=== PATIENT | male | born 1965 | race Caucasian/White ===

== ENCOUNTER → 2016-10-01 | Outpatient (CLI) | payer OTHER ==
[2015-09-12 22:20] VITALS: BP 126/78
--- NOTE | 2016-10-01 16:05 | CT ---
Chest CT without contrast Indication: Sternal pain with concern for sternal separation. History of remote CABG in 2010 Technique: Helical CT images of the chest were obtained without contrast. Reformatted images in the coronal and sagittal planes were also generated for review. Comparison: Sternal radiograph November 23, 2015, chest radiograph September 12, 2015 Findings: Prior median sternotomy changes are noted. The majority of the sternotomy wires are fractured/fragme nted, grossly unchanged when compared to the chest radiograph of September 12, 2015, with approximately 6 mm distraction of left and right sternum. The medial margins of the left and right sternum demonstr ate well corticated margins. The sternomanubrial joint appears maintained. No acute fracture or subl uxation of the sternum is identified. Mild degenerative changes are noted throughout the thoracic sp ine. No aggressive osseous lesions are seen. The heart is mildly enlarged with advanced 3 vessel coronary atherosclerotic disease and prior CABG changes noted. No significant pericardial effusion or retrosternal fluid collection is identified. T he thoracic aorta and great vessels appear normal for noncontrast technique. Central airways are pat ent. There is no incidental adenopathy. The lungs are clear without focal consolidation or significa nt effusion. Noncontrast images of the upper abdomen demonstrates no acute abnormality. Impression: 1. Prior median sternotomy with fragmentation/fracture of the majority of the sternotomy wires, as d etailed above. There is mild associated distraction of the left and right sternum (approximately 6 m m), which demonstrate well corticated margins, suggesting chronicity. 2. Otherwise, no acute cardiopulmonary abnormality identified. Additional incidental findings as abo ve. Reported By:
== END ==
LOC: RAD 13:59
PROVIDERS: ATTEND Internal Medicine Cardiovascular Disease
DX: R07.89 Other chest pain (principal); Z98.890 Other specified postprocedural states
CPT/HCPCS: 71250

== ENCOUNTER 2017-04-06 17:43 | Emergency (ER) | payer OTHER ==
[2017-04-06 17:56] VITALS: BP 134/72; BMI 36.4
--- NOTE | 2017-04-06 18:42 | DR.GENAD ---
HPI - PCP Primary Care Physician: JEROD ValentineP - HPI Comment HPI Comment: HISTORY CHRONIC BACK PAIN. ONE WEEK AGO, POPPING SOUND HEARD WHENPATIENT TWISTED BACK 6 DAYS AGO. INCREASING PAIN SINCE. TAKES PAIN MED FROM PAIN CLINIC. - Complaint/Symptoms Chief Complaint Doctors Comments: LOWER BACK PAIN. Chief Complaint:: Pt has two fractured vertebra in lower back. Last wednesday pt was doing laundry and twisted and heard a crack and since then pt hasn't been able to stand stright and has had tremendous pain in lower back that radiates down both legs Self Treatment fo Chief Complaint: Viocdin - see Dr. Norton in [place] for pain management - Nurses notes reviewed Nurses Notes Review: Yes - Source History Provided: Parent - Mode of Arrival Mode of Arrival: Ambulatory - Timing Onset of Chief Complaint: 03/31/17 Came on: Suddenly - Duration Duration: Constant Duration: Days - Severity Severity: Moderate PMH - PMH Past Medical History: Yes Past Medical History: Arthritis, Coronary Artery Disease, Depression, Diabetes, Dyslipidemia, GERD, Hypertension, [place] Past Surgical History: Yes Surgical History: Angioplasty/Stents, CABG/Valve Surgery, Ortho Surgery, Tonsillectomy Past Surgical History Comment: tear ducts reopened, - Family History History of Family Medical Conditions: Yes Family Medical History: Diabetes Mellitus, Cancer, [place], Coronary Artery Disease, Hypertension - Social History Does patient currently use any type of tobacco product: Yes Have you used tobacco products in the last 12 months: Yes Type of Tobacco Use: Cigarettes Does any household member use tobacco: Yes Alcohol Use: None, Heavy Do you use any recreational Drugs:: No Lives With: Spouse Lives Where: Home - infectious screening In the last 2 months have you had wt loss of >10#?: NO Have you had fever, night sweats or hemotysis?: No Have you traveled outside the country in the last 6 months?: No Isolation: Standard ROS - Review of Systems Constitutional: No Symptoms Reported Eyes: No Symptoms Reported ENTM: No Symptoms Reported Respiratoy: No Symptoms Reported Cardiovascular: No Symptoms Reported Gastrointestinal/Abdominal: No Symptoms Reported Genitourinary: No Symptoms Reported Neurological: No Symptoms Reported Musculoskeletal: Back Pain, Back Integumentary: No Symptoms Reported Endocrine: No Symptoms Reported All Other Systems: Reviewed and Negative PE - Vital Signs Vitals: Temperature 97.1 F Pulse Rate 81 Respiratory Rate 20 Blood Pressure [Right Arm] 126/78 Blood Pressure 134/72 O2 Sat by Pulse Oximetry 96 - General Limitations: No Limitations General Appearance: Alert - Head Head Exam: Normal Inspection - Eyes Eye exam: PERRL, EOMI. negative: Scleral Icterus, Conjunctival Injection - ENT ENT Exam: Normal External Ear Exam External Ear Exam: Normal External Inspection TM/Canal Exam: Bilateral Normal Mouth Exam: Normal Inspection Throat Exam: Normal Inspection - Neck Neck Exam: Trachea Midline - Chest Chest Inspection: Symmetric Chest Wall Rise - Respiratory Respiratory Exam: Normal Lung Sounds Bilat Respiratory Exam: Bilateral Clear to Auscultation - Cardiovascular Cardiovascular Exam: Regular Rate, Normal Rhythm, Normal Heart Sounds - Abdominal Exam Abdominal Exam: Normal Bowel Sounds - Extremities Extremities Exam: Normal Inspection - Back Back Exam: (R) CVA Tenderness, (L) CVA Tenderness, Muscle Spasm, Paraspinal Tenderness, Vertebral Tenderness - Neurologic Neurological Exam: Alert, Oriented X3, Normal Gait, Reflexes Normal. negative: Motor Sensory Deficit - Psychiatric Psychiatric Exam: Normal Affect, Normal Mood - Skin Skin Exam: Normal Color MDM - Additional Information Additional Information Obtained From: Family - Differential Diagnosis Differential Diagnosis: LOWER BACK , MUSCLE STRAIN, FRACTURE, SPRAIN. Course - Treatment Treatment: SEE ORDERS. IM TORADOL AND NORFLEX IN ED. - Education/Counseling Education/Counseling: Patient, Education Educated On: Treatment, Diagnosis, Needs for Follow Up ROR - XRAY XRAY Interpreted by: Radiologist XRAY Findings: REPORT DISCUSS WITH PATIENT. - Diagnosis Discharge Problem: Strain of muscle, fascia and tendon of lower back, initial encounter - Discharge Plan Disposition: 01 HOME, SELF-CARE Condition: Stable Prescriptions: Cyclobenzaprine HCl [FLEXERIL 10 MG *] 10 mg PO TID #20 tab Ketorolac Tromethamine [Toradol Tab] 10 mg PO Q8H PRN #20 tab PRN Reason: Pain - Follow ups/Referrals Follow ups/Referrals: NFD,None [Primary Care Provider] - 3 days - Instructions Instructions: Musculoskeletal Pain, Back Pain, Adult, Dtpz-[id number] Additional Instructions: RETURN TO ED IF WORSE.
[2017-04-06] MEDS ORDERED: NORFLEX INJ IM ONE (18:46)
[2017-04-06] MEDS ORDERED: TORADOL 60 MG VIAL IM ONE (18:46)
[2017-04-06] MEDS ORDERED: TORADOL 60 MG VIAL ONE (19:06)
[2017-04-06] MEDS ORDERED: NORFLEX INJ ONE (19:06)
--- NOTE | 2017-04-06 19:14 | CT ---
HISTORY: Pain, history of fractured vertebra Study: CT lumbar spine without contrast Comparison: None Technique: Multiple axial images of the lumbar spine without the administration of IV contrast. Sag ittal and coronal reformats were performed and reviewed. Dose reduction techniques including Automat ed Exposure Control (AEC) and adjustment of mA and kV were utilized. Findings: Multilevel spondylosis and facet arthropathy is present. There are bilateral pars interarticularis de fects at L5 resulting in 1.3 cm of spondylolisthesis. There are calcified broad-based disc bulges at L3-L4 and L4-5 resulting in moderate spinal stenosis at L3-L4. There is broad-based disc bulge at L2- L3. No acute fracture or dislocation is identified. Vertebral body heights are preserved. The surroun ding paraspinal soft tissues are intact. IMPRESSION: 1.No osseous abnormality of the lumbar spine. 2. Bilateral pars interarticularis defects at L5 resulting in 1.3 cm of spondylolisthesis. 3. Moderate spinal stenosis at L3-L4. Reported By:
== END 2017-04-06 20:13 | disposition home or self-care (01) ==
LOC: ER 18:03
DX: S39.012A Strain of muscle, fascia and tendon of lower back, initial encounter (principal); M43.16 Spondylolisthesis, lumbar region; M48.061 Spinal stenosis, lumbar region without neurogenic claudication
CPT/HCPCS: 72131; 96372; 99282; 99283; J1885; J2360

== ENCOUNTER → 2017-05-24 | Outpatient (CLI) | payer OTHER ==
[2017-05-24 13:43] LABS: BASOPHILS # (AUTO) 0.1 X10^3/uL (0.0-0.1); BASOPHILS % (AUTO) 0.8 % (0.2-1.0); EOSINOPHILS # (AUTO) 0.3 x10^3/uL (0.0-0.2); EOSINOPHILS % (AUTO) 2.3 % (0.9-2.9); HEMOGLOBIN 14.7 g/dL (13.5-18.0); LYMPHOCYTES # (AUTO) 3.6 X10^3/uL (1.3-2.9); LYMPHOCYTES % (AUTO) 30.9 % (21.0-51.0); MEAN CORPUSCULAR HEMOGLOBIN 27.8 pg (27.0-34.0); MEAN CORPUSCULAR HGB CONC 33.4 g/dL (33.0-35.0); MEAN CORPUSCULAR VOLUME 83.3 fL (80.0-100.0); MEAN PLATELET VOLUME 9.3 fL (7.4-11.0); MONOCYTES # (AUTO) 0.9 x10^3/uL (0.3-0.8); MONOCYTES % (AUTO) 7.4 % (0.0-13.0); NEUTROPHILS # (AUTO) 6.8 x10^3/uL (2.2-4.8); NEUTROPHILS % (AUTO) 58.6 % (42.0-75.0); PLATELET COUNT 239 X10^3/uL (150.0-450.0); RED BLOOD COUNT 5.28 X10^6/uL (4.7-6.0); RED CELL DISTRIBUTION WIDTH 14.4 % (11.6-16.5); WHITE BLOOD COUNT 11.6 X10^3/uL (3.6-10.0)
--- NOTE | 2017-05-24 15:52 | RAD ---
HISTORY: COPD Study: Two views of chest Comparison: November 23, 2015 Findings: The trachea is midline. The cardiac silhouette is mildly enlarged. No evidence of focal consolidati on or effusion is appreciated. Mild anterior wedging of a few mid to lower thoracic vertebral bodies are again noted. Postoperative changes of midline sternotomy are noted. IMPRESSION: 1. Mild cardiomegaly. Reported By:
== END ==
LOC: LAB 13:15
PROVIDERS: ATTEND Nurse Practitioner Family
DX: J44.0 Chronic obstructive pulmonary disease with (acute) lower respiratory infection (principal); J20.9 Acute bronchitis, unspecified
CPT/HCPCS: 36415; 71046; 85025

== ENCOUNTER 2017-06-25 06:03 | Emergency (ER) | payer OTHER ==
--- NOTE | 2017-06-25 06:21 | DR.CP ---
HPI - Time Seen Time seen: 06:17 - PCP Primary Care Physician: HANS PLUNKETT - Complaint Chief Complaint:: UPPER CHEST PAIN SINCE LAST NIGHT AROUND 2300. SOME LIGHT HEADEDNESS. EXTENSIVE CARDIAC HISTORY. - Reviewed Nurses Notes Review: Yes - Source History Provided: Patient, EMS - Mode of Arrival Mode of Arrival: EMS - Timing Onset of Chief Complaint: 06/24/17 Came on: Gradually - Duration Duration: Constant How lon Duration: Hours - Location Location of Chest Pain: Chest Chest Pain Radiation Location: None - Context Onset: At rest Cardiac Risk Factors: HTN PE Risk Factors: None History of: MA, Angioplasty Prehospital Care: Oxygen - Quality Quality: Burning - Severity Severity: Mild - Modifying Factors Worsens: Nothing Impoves: NTG - Associated Signs and Symptoms Associated Signs and Symptoms: None PMH - PMH Past Medical History: Yes Past Medical History: Arthritis, Coronary Artery Disease, Depression, Diabetes, Dyslipidemia, GERD, Hypertension, [place] Past Surgical History: Yes Surgical History: Angioplasty/Stents, CABG/Valve Surgery, Ortho Surgery, Tonsillectomy - Family History History of Family Medical Conditions: Yes Family Medical History: Diabetes Mellitus, Cancer, [place], Coronary Artery Disease, Hypertension - Social History Type of Tobacco Use: None Alcohol Use: None Do you use any recreational Drugs:: No Lives Where: Home - infectious screening Have you traveled outside the country in the last 6 months?: No Isolation: Standard ROS - Review of Systems Constitutional: No Symptoms Reported Eyes: No Symptoms Reported ENTM: No Symptoms Reported Respiratoy: Short of Breath Cardiovascular: Chest Pain Gastrointestinal/Abdominal: No Symptoms Reported Genitourinary: No Symptoms Reported Neurological: No Symptoms Reported Musculoskeletal: No Symptoms Reported Integumentary: No Symptoms Reported Hematologic/Lymphatic: No Symptoms Reported Endocrine: No Symptoms Reported Psychiatric: No Symptoms Reported All Other Systems: Reviewed and Negative PE - Vitals Vitals: Temperature 98.1 F Pulse Rate 90 Respiratory Rate 18 Blood Pressure [Right Arm] 126/78 Blood Pressure 144/87 O2 Sat by Pulse Oximetry 96 - General Limitations: No Limitations General Appearance: Alert, In No Apparent Distress - Head Head Exam: Normal Inspection - Eyes Eye exam: Normal Appearance, EOMI. negative: Scleral Icterus, Conjunctival Injection - ENT ENT Exam: Normal Exam, Normal Oropharynx - Chest Chest Inspection: Normal Inspection - Respiratory Respiratory Exam: Normal Lung Sounds Bilat. negative: Accessory Muscle Use, Respiratory Distress Respiratory Exam: Bilateral Clear to Auscultation - Cardiovascular Cardiovascular Exam: Regular Rate Pulse: Normal Edema: Normal - Abdominal Exam Abdominal Exam: Normal Inspection, Normal Bowel Sounds, Soft - Extremities Extremities Exam: Normal Inspection - Back Back Exam: Normal Inspection - Neurologic Neurological Exam: Alert, Oriented X3, CN II-XII Intact - Psychiatric Psychiatric Exam: Normal Affect - Skin Skin Exam: Warm, Intact, Normal Color Course - Consultation Called: 06:59 Call Returned: 07:00 Consultation Comments: case discussed with DR. [facility], accepted patient - Diagnosis Discharge Problem: Chest pain due to CAD - Discharge Plan Condition: Stable - Follow ups/Referrals Follow ups/Referrals: HANS PLUNKETT [Primary Care Provider] - 3 days - Instructions
[2017-06-25 06:26] VITALS: BMI 36.7
[2017-06-25] MEDS ORDERED: NITROSTAT SL PRN (06:34)
--- NOTE | 2017-06-25 06:48 | RAD ---
Examination: AP chest History: Chest pain Comparison reference 05/24/2017 Findings: Stable heart size with postsurgical findings. Essentially clear lungs and pleural spaces. T here is no evidence for pneumonia, pleural fluid or pulmonary edema. Impression: No significant change or acute findings. Reported By:
[2017-06-25 07:09] LABS: BASOPHILS # (AUTO) 0.1 X10^3/uL (0.0-0.1); BASOPHILS % (AUTO) 0.7 % (0.2-1.0); EOSINOPHILS # (AUTO) 0.1 x10^3/uL (0.0-0.2); EOSINOPHILS % (AUTO) 0.7 % (0.9-2.9); HEMATOCRIT 40.6 % (42.0-54.0); HEMOGLOBIN 13.8 g/dL (13.5-18.0); LYMPHOCYTES # (AUTO) 2.2 X10^3/uL (1.3-2.9); LYMPHOCYTES % (AUTO) 18.3 % (21.0-51.0); MEAN CORPUSCULAR HEMOGLOBIN 27.7 pg (27.0-34.0); MEAN CORPUSCULAR VOLUME 81.7 fL (80.0-100.0); MEAN PLATELET VOLUME 9.3 fL (7.4-11.0); MONOCYTES % (AUTO) 7.9 % (0.0-13.0); NEUTROPHILS # (AUTO) 8.9 x10^3/uL (2.2-4.8); NEUTROPHILS % (AUTO) 72.4 % (42.0-75.0); PLATELET COUNT 206 X10^3/uL (150.0-450.0); RED BLOOD COUNT 4.97 X10^6/uL (4.7-6.0); RED CELL DISTRIBUTION WIDTH 14.7 % (11.6-16.5); WHITE BLOOD COUNT 12.2 X10^3/uL (3.6-10.0)
[2017-06-25 07:49] LABS: ALANINE AMINOTRANSFERASE 21 Units/L (12-78); ALBUMIN 3.7 g/dL (3.4-5.0); ALKALINE PHOSPHATASE 115 Units/L (46-116); ASPARTATE AMINO TRANSFERASE 57 Units/L (15-37); BLOOD UREA NITROGEN 9 mg/dL (7-18); CALCIUM 9.1 mg/dL (8.5-10.1); CARBON DIOXIDE 25.4 mmol/L (21-32); CHLORIDE 99 mmol/L (98-107); CKMB % 5.7 % (<4); COR NA(FOR HYPERGLY) 142 mmol/L (136-145); CREATINE KINASE 503 Units/L (39-308); CREATINE KINASE MB 28.6 ng/mL (0-4.0); CREATININE 0.83 mg/dL (0.70-1.30); MAGNESIUM 1.8 mg/dL (1.7-2.9); SODIUM 135 mmol/L (136-145); TOTAL PROTEIN 7.8 g/dL (6.4-8.2); eGFR BLACK RACES > 60 (>60); eGFR NON BLACK RACES > 60 (>60)
[2017-06-25 07:50] LABS: TROPONIN I 7.17 ng/mL (0-1.5)
[2017-06-25] MEDS ORDERED: NITROGLYCERIN IV PREMIX 50 MG 50 MG/250 ML BAG IV PRN (08:49)
[2017-06-25] MEDS ORDERED: NITROGLYCERIN IV PREMIX 50 MG 50 MG/250 ML BAG IV ONE (08:50)
[2017-06-25] MEDS ORDERED: ZOFRAN INJ 4 MG VIAL ONE (08:59)
[2017-06-25] MEDS ORDERED: ZOFRAN INJ 4 MG VIAL IVP ONE (08:59)
[2017-06-25 09:00] VITALS: BP 169/82
== END 2017-06-25 09:03 | disposition short-term general hospital (02) ==
LOC: ER 06:03
DX: R07.89 Other chest pain (principal); Z86.79 Personal history of other diseases of the circulatory system; R94.31 Abnormal electrocardiogram [ECG] [EKG]
CPT/HCPCS: 36415; 71045; 80053; 82550; 82553; 83735; 84484; 85025; 85610; 85730; 93005; 93010; 96365; 96374; 96375; 99285; A4222; J2405

== ENCOUNTER 2020-01-28 10:00 | Inpatient (IN) ==
--- NOTE | 2020-01-28 10:14 | DR.SOBA ---
HPI Time Seen Time Seen by Provider: 01/28/20 10:14 HPI Comment HPI Comment: PATIENT IS 54YR OLD MALE IN ER WITH INCREASING SOB TIMES 3 DAYS. PATIENT HAVE HISTORY OF COPB ON HOME 02 4L/M. HE ALSO HAVEE CAD, HTN, PREVIOUS AR AND CABG. HE ALSO HAVE INDWELLING PACEMAKER. PATIENT IS WEAK, HAVE BEING SWEA TING A LOT, HAVING PLEUTIC CHEST PAIN AND TIGHTNESS AND HAVE INCREASING EDEMA OF LOWER EXTREMITIES. NO FEVER. SYMTOMS WORSE TODAY. HE IS COUGHING THICK YELLOW SPUTUM. Complaints Chief Complaint Doctors Comments: INCREASING SOB FOR 3 DAYS. COVID-19 Coronavirus risk:travel/contact w/high risk person: No Has patient experienced Coronavirus symptoms: Yes Coronavirus symptoms experienced: Coughing and Shortness of Breath Reviewed Nurses Notes Reviewed: Yes Source History Provided: Patient Mode of Arrival Mode of Arrival: Ambulatory Duration Duration: Days Context Onset:: At Rest PE Risk Factors:: None History of:: COPD and CHF Currently on:: Inhaled Bronchodilators Prehospital Care:: O2, Injected B2 and Furosemide Modifying Factors Worsens:: Exertion and Lying Flat Improves:: Inhaler, Rest and Sitting Up Associated Signs and Symptoms Associated Signs and Symptoms: Wheeze, Cough, Chest Pain and Leg Swelling If Chest Pain Quality: Pleuritic Location: Substernal If Cough Cough: Productive and Yellow PMH PMH Past Medical History: Arthritis, Coronary Artery Disease, Depression, Diabetes, Dyslipidemia, GERD, Hypertension and AR Past Surgical History: Yes Surgical History: Angioplasty/Stents, CABG/Valve Surgery, Ortho Surgery and Tons illectomy Family History Family Medical History: Diabetes Mellitus, Cancer, [place], Coronary Artery Disease and Hypertension Social History Do you use any recreational Drugs:: No ROS Review of Systems Constitutional: See HPI, Weakness and Fatigue; negative Fever Eyes: No Symptoms Reported and See HPI; negative Blurred Vision and Diplopia ENTM: See HPI and Nose Congestion; negative Ear Pain, Nose Discharge and Throat Pain Respiratoy: See HPI, Productive Cough, Short of Breath and Wheezing Cardiovascular: See HPI, Chest Pain (TIGHTNESS.) and Edema Gastrointestinal/Abdominal: No Symptoms Reported and See HPI; negative Abdominal Pain, Diarrhea and Vomiting Genitourinary: See HPI; negative Dysuria, Frequency and Hematuria Neurological: See HPI, Headache and Weakness; negative Dizziness Musculoskeletal: See HPI, Back Pain and Muscle Pain Integumentary: No Symptoms Reported and See HPI; negative Change in Color, Rash and Juandice Hematologic/Lymphatic: See HPI, Easy Bleeding and Easy Bruising; negative Swollen Glands Endocrine: No Symptoms Reported and See HPI; negative Increased Thirst and Increased Urine Psychiatric: No Symptoms Reported and See HPI All Other Systems: Reviewed and Negative PE Vital Signs Vitals: Temperature 98.1 F Pulse Rate 60 Respiratory Rate 20 Blood Pressure [Right Arm] 115/66 Blood Pressure 121/56 O2 Sat by Pulse Oximetry 100 General Limitations: No Limitations General Appearance: Alert and In No Apparent Distress Head Head Exam: Normal Inspection Eyes Eye exam: Normal Appearance and PERRL; negative Scleral Icterus and Conjunctival Injection ENT ENT Exam: Normal External Ear Exam; negative Normal Oropharynx and TM's Normal Bilaterally Neck Neck Exam: Normal Inspection and Trachea Midline; negative Tenderness and Lymphadenopathy Chest Chest Inspection: Normal Inspection and Symmetric Chest Wall Rise; negative Tenderness Respiratory Respiratory Exam: Accessory Muscle Use and Respiratory Distress; negative Chest Wall Tenderness Respiratory Exam: Bilateral: Wheezing and Bilateral: Rhonchi and Lower: Wheezing and Lower: Rhonchi Cardiovascular Cardiovascular Exam: Regular Rate, Normal Rhythm and Normal Heart Sounds; negative Systolic Murmur and Diastolic Murmur Abdominal Exam Abdominal Exam: Normal Inspection, Normal Bowel Sounds and Soft; negative Tenderness Extremities Extremities Exam: Normal Capillary Refill and Edema; negative Tenderness and Calf Tenderness Back Back Exam: Normal Inspection; negative (R) CVA Tenderness and (L) CVA Tenderness Neurologic Neurological Exam: Alert and Oriented X3; negative Motor Sensory Deficit Psychiatric Psychiatric Exam: Normal Affect and Normal Mood Skin Skin Exam: Warm, Dry, Intact and Normal Color MDM Additional Information Obtained Additional Information Obtained From: Old Records Differential Diagnosis Differential Diagnosis: Bronchitis, CHF, COPD, Dysrhythmia, Hyponatremia, Mycardial Infarction, Pneumonia, Pneumothorax and Respiratory Insufficiency COURSE Treatment Treatment: SEE ORDERS. ALBUTEROL 0.5MG/3MG NEB, LASIX 40MD IV, DECADRON 4MG IV, ROCEPHIN IGM IVPB IN ER. Reevaluation 1st: Improved (SOB IMPROVING.) Consultation Consultation Comments: DISCUSSED PATIENT WITH DR. ROBERTS AND HE WILL ACCEPTED PATIENT FOR ADMISSION. Education/Counseling Education/Counseling: Patient Educated On: Diagnosis ROR Labs Reviewed Laboratory Results Reviewed?: Yes Result Diagrams: 01/30/20 06:05 01/30/20 06:05 Laboratory: 01/28/20 15:05 Blood Blood Culture - Final 01/28/20 15:00 Blood Blood Culture - Final 01/28/20 11:19 Sputum - Expectorated Sputum Sputum Culture - Final 01/28/20 11:19 Sputum - Expectorated Sputum - Final WBC 7.9 X10^3/uL (3.6-10.0) 01/28/20 10:38 RBC 3.73 X10^6/uL (4.7-6.0) L 01/28/20 10:38 Hgb 10.1 g/dL (13.5-18.0) L 01/28/20 10:38 Hct 30.1 % (42.0-54.0) L 01/28/20 10:38 MCV 80.8 fL (80.0-100.0) 01/28/20 10:38 MCH 27.0 pg (27.0-34.0) 01/28/20 10:38 MCHC 33.4 g/dL (33.0-35.0) 01/28/20 10:38 RDW 15.4 % (11.6-16.5) 01/28/20 10:38 Plt Count 185 X10^3/uL (150.0-450.0) 01/28/20 10:38 MPV 8.9 fL (7.4-11.0) 01/28/20 10:38 Neut % (Auto) 77.5 % (42.0-75.0) H 01/28/20 10:38 Lymph % (Auto) 11.3 % (21.0-51.0) L 01/28/20 10:38 [place] % (Auto) 9.8 % (0.0-13.0) 01/28/20 10:38 Eos % (Auto) 1.1 % (0.9-2.9) 01/28/20 10:38 Baso % (Auto) 0.3 % (0.2-1.0) 01/28/20 10:38 Neut # (Auto) 6.1 x10^3/uL (2.2-4.8) H 01/28/20 10:38 Lymph # (Auto) 0.9 X10^3/uL (1.3-2.9) L 01/28/20 10:38 [place] # (Auto) 0.8 x10^3/uL (0.3-0.8) 01/28/20 10:38 Eos # (Auto) 0.1 x10^3/uL (0.0-0.2) 01/28/20 10:38 Baso # (Auto) 0.0 X10^3/uL (0.0-0.1) 01/28/20 10:38 Absolute Nucleated RBC 0.0 /100WBC 01/28/20 10:38 Sodium 137 mmol/L (136-145) 01/28/20 10:38 Corrected Sodium 140 mmol/L (136-145) 01/28/20 10:38 Potassium 3.8 mmol/L (3.5-5.1) 01/28/20 10:38 Chloride 99 mmol/L (98-107) 01/28/20 10:38 Carbon Dioxide 34.1 mmol/L (21-32) H 01/28/20 10:38 BUN 11 mg/dL (7-18) 01/28/20 10:38 Creatinine 1.10 mg/dL (0.70-1.30) 01/28/20 10:38 Est GFR (MDRD) Af Amer > 60 (>60) 01/28/20 10:38 Est GFR (MDRD) Non-Af > 60 (>60) 01/28/20 10:38 Glucose 210 mg/dL (65-99) H 01/28/20 10:38 Calcium 9.1 mg/dL (8.5-10.1) 01/28/20 10:38 Corrected Calcium TNP 01/28/20 10:38 Total Bilirubin 0.80 mg/dL (0.2-1.0) 01/28/20 10:38 AST 34 Units/L (15-37) 01/28/20 10:38 ALT 27 Units/L (12-78) 01/28/20 10:38 Alkaline Phosphatase 128 Units/L (46-116) H 01/28/20 10:38 Creatine Kinase 246 Units/L (39-308) 01/28/20 10:38 CK-MB (CK-2) 4.1 ng/mL (0-4.0) H 01/28/20 10:38 CK/CKMB % Calc 1.7 % (<4) 01/28/20 10:38 Troponin I 0.06 ng/mL (0-1.5) 01/28/20 10:38 B-Natriuretic Peptide 1260 pg/mL (0-79) H* 01/28/20 10:38 Total Protein 7.7 g/dL (6.4-8.2) 01/28/20 10:38 Albumin 3.6 g/dL (3.4-5.0) 01/28/20 10:38 Globulin 4.1 g/dL (2.5-4.5) 01/28/20 10:38 Albumin/Globulin Ratio 0.9 Ratio (1.1-2.1) L 01/28/20 10:38 Specimen Type Random urine 01/28/20 11:19 Urine Color Yellow (YELLOW) 01/28/20 11:19 Urine Appearance Clear (CLEAR) 01/28/20 11:19 Urine pH 7.0 (5.0 - 8.0) 01/28/20 11:19 Ur Specific [place] 1.010 (1.000-1.030) 01/28/20 11:19 Urine Protein 2+ (NEGATIVE) 01/28/20 11:19 Urine Glucose (UA) Negative (NEGATIVE) 01/28/20 11:19 Urine Ketones Negative (NEGATIVE) 01/28/20 11:19 Urine Occult Blood Negative (NEGATIVE) 01/28/20 11:19 Urine Nitrite Negative (NEGATIVE) 01/28/20 11:19 Urine Bilirubin Negative (NEGATIVE) 01/28/20 11:19 Urine Urobilinogen Normal (NORMAL) 01/28/20 11:19 Ur Leukocyte Esterase Negative (NEGATIVE) 01/28/20 11:19 Urine RBC None seen /HPF (0-3) 01/28/20 11:19 Urine WBC None seen /HPF (0-5) 01/28/20 11:19 Ur Squamous Epith Cells Rare /HPF (NEGATIVE) 01/28/20 11:19 Urine Bacteria Negative /HPF (NEGATIVE) 01/28/20 11:19 Ur Culture Indicated? No/not indicated 01/28/20 11:19 SARS-CoV-2 (PCR) Negative (NEGATIVE) 01/28/20 15:40 XRAY XRAY Interpreted by: Radiologist (REPORT NOTED AND DISCUSSED WITH PATIENT.) and Self EKG Rate: 69 Rhythm: Paced Opioid Opioid Risk Tool Age (Lorenzo box if 16-45): No History of Preadolescent Sexual Abuse: No Total: 0 Total Score Risk Category: Low Risk Copyright: Efrem SEGURA predicting aberrant behaviors Diagnosis Discharge Problem: Congestive heart failure (CHF) Instructions Instructions: Shortness of Breath, Adult, Ayol-on-Pflf Incentive Spirometer Home Oxygen Use, Adult Upper Respiratory Infection, Adult, Msrp-dg-[id number] Chronic Obstructive Pulmonary Disease, Wyve-mb-Uuub Type 2 Diabetes Mellitus, Self Care, Adult, Uoik-[id number] Health Risks of Smoking Heart Failure, Icpb-[id number]-[id number] Cough, Adult Tobacco Use Disorder Steps to Quit Smoking Community-Acquired Pneumonia, Adult, Pplr-kn-Ffur Forms: Precautions for COVID19 Patient Portal Social Distancing
[2020-01-28 10:21] VITALS: BMI 35.2
[2020-01-28] MEDS ORDERED: DUONEB 0.5 MG/3 MG (3 mL) NEB ONE ×3 (10:29→10:34)
[2020-01-28] MEDS ORDERED: DECADRON INJ ONE ×2 (10:32→11:51)
[2020-01-28] MEDS ORDERED: DECADRON JET NEB (RESP USE) NEB ONE (10:34)
[2020-01-28 10:57] LABS: BASOPHILS % (AUTO) 0.3 % (0.2-1.0); EOSINOPHILS # (AUTO) 0.1 x10^3/uL (0.0-0.2); EOSINOPHILS % (AUTO) 1.1 % (0.9-2.9); HEMATOCRIT 30.1 % (42.0-54.0); HEMOGLOBIN 10.1 g/dL (13.5-18.0); LYMPHOCYTES # (AUTO) 0.9 X10^3/uL (1.3-2.9); LYMPHOCYTES % (AUTO) 11.3 % (21.0-51.0); MEAN CORPUSCULAR HGB CONC 33.4 g/dL (33.0-35.0); MEAN CORPUSCULAR VOLUME 80.8 fL (80.0-100.0); MEAN PLATELET VOLUME 8.9 fL (7.4-11.0); MONOCYTES # (AUTO) 0.8 x10^3/uL (0.3-0.8); MONOCYTES % (AUTO) 9.8 % (0.0-13.0); NEUTROPHILS # (AUTO) 6.1 x10^3/uL (2.2-4.8); NEUTROPHILS % (AUTO) 77.5 % (42.0-75.0); PLATELET COUNT 185 X10^3/uL (150.0-450.0); RED BLOOD COUNT 3.73 X10^6/uL (4.7-6.0); RED CELL DISTRIBUTION WIDTH 15.4 % (11.6-16.5); WHITE BLOOD COUNT 7.9 X10^3/uL (3.6-10.0)
[2020-01-28 11:13] LABS: BLOOD UREA NITROGEN 11 mg/dL (7-18); CALCIUM 9.1 mg/dL (8.5-10.1); CARBON DIOXIDE 34.1 mmol/L (21-32); CHLORIDE 99 mmol/L (98-107); COR NA(FOR HYPERGLY) 140 mmol/L (136-145); SODIUM 137 mmol/L (136-145); TROPONIN I 0.06 ng/mL (0-1.5); eGFR NON BLACK RACES > 60 (>60)
[2020-01-28 11:36] LABS: ALANINE AMINOTRANSFERASE 27 Units/L (12-78); ALBUMIN 3.6 g/dL (3.4-5.0); ALKALINE PHOSPHATASE 128 Units/L (46-116); ASPARTATE AMINO TRANSFERASE 34 Units/L (15-37); CKMB % 1.7 % (<4); CREATINE KINASE 246 Units/L (39-308); TOTAL PROTEIN 7.7 g/dL (6.4-8.2)
[2020-01-28 11:40] LABS: CREATINE KINASE MB 4.1 ng/mL (0-4.0)
[2020-01-28 11:43] LABS: BILIRUBIN,URINE NEGATIVE (NEGATIVE); BLOOD/HEMOGLOBIN,URINE NEGATIVE (NEGATIVE); GLUCOSE, URINE NEGATIVE (NEGATIVE); KETONES,URINE NEGATIVE (NEGATIVE); LEUKOCYTE ESTERASE ,URINE NEGATIVE (NEGATIVE); NITRITES,URINE NEGATIVE (NEGATIVE); PROTEIN,URINE 2+ (NEGATIVE); UROBILINOGEN,URINE NORMAL (NORMAL)
[2020-01-28 11:51] LABS: APPEARANCE,URINE CLEAR (CLEAR); BACTERIA,URINE NEGATIVE /HPF (NEGATIVE); COLOR,URINE YELLOW (YELLOW); RBC,URINE NONE SEEN /HPF (0-3); SQUAMOUS EPITHELIAL CELL,UR RARE /HPF (NEGATIVE)
[2020-01-28] MEDS ORDERED: DECADRON INJ PRESERVATIVE-FREE IVP ONE (11:51)
[2020-01-28] MEDS ORDERED: LASIX IVP ONE ×2 (13:22→13:32)
--- NOTE | 2020-01-28 14:42 | RAD ---
HISTORYSOBSTUDYCHEST, 1 [id number]/29/2020FINDINGSThe trachea is midline. The cardiac silhouette is widened but stable. Similar post sternotomy changes. Left-sided pacer and pacer wires unchanged. Patchy bilateral airspace opacities. The bony thorax is unremarkable.IMPRESSIONPatchy bibasilar airspace opacities concerning for edema or pneumonia.Electronically signed by: SHARITA LOPEZ (Jan 28, 2020 14:40:30)
[2020-01-28] MEDS ORDERED: ROCEPHIN VIAL 1 GRAM 1 G in NS 100 ML IV + SPIKE MINIBAG* 100 ML IV ONE (14:48)
[2020-01-28] MEDS ORDERED: LEVSIN/MAALOX/LIDOC VISC PO ONE (14:59)
[2020-01-28] MEDS ORDERED: PEPCID TAB 20 MG PO ONE (15:00)
[2020-01-28] MEDS ORDERED: ROCEPHIN VIAL 1 GRAM ONE (16:00)
[2020-01-28] MEDS ORDERED: NS 50 ML IV + SPIKE MINIBAG* 50 ML IV ONE (16:00)
[2020-01-28] MEDS ORDERED: NS 250 ML IV 250 ML IV ONE (16:01)
[2020-01-28] MEDS ORDERED: NS 100 ML IV 100 ML IV ONE (16:01)
[2020-01-28] MEDS ORDERED: TAPENTADOL 100 MG PO PRN (17:08)
[2020-01-28] MEDS: DUONEB 0.5 MG/3 MG (3 mL) NEB SCH ×2 (17:55→20:46)
[2020-01-28] MEDS: CARAFATE PO SCH ×2 (18:12→21:00)
[2020-01-28] MEDS: ZITHROMAX INJ 500 MG VIAL 500 MG in D5W 250 ML IV 250 ML IV SCH (18:33)
[2020-01-28] MEDS: HumuLIN R SUBCUT PRN (18:34)
[2020-01-28 20:03] LABS: BILIRUBIN,URINE NEGATIVE (NEGATIVE); BLOOD/HEMOGLOBIN,URINE 2+ (NEGATIVE); GLUCOSE, URINE 4+ (NEGATIVE); KETONES,URINE NEGATIVE (NEGATIVE); LEUKOCYTE ESTERASE ,URINE NEGATIVE (NEGATIVE); NITRITES,URINE NEGATIVE (NEGATIVE); PROTEIN,URINE 2+ (NEGATIVE); UROBILINOGEN,URINE 1+ (NORMAL)
[2020-01-28 20:25] LABS: APPEARANCE,URINE SLIGHTLY HAZY (CLEAR); COLOR,URINE YELLOW (YELLOW)
[2020-01-28] MEDS ORDERED: NEURONTIN CAP 300 MG ONE (20:27)
[2020-01-28 20:34] LABS: BACTERIA,URINE TRACE /HPF (NEGATIVE); GRANULAR CASTS,URINE MANY /LPF (NEGATIVE); HYALINE CASTS, URINE MODERATE /LPF (NEGATIVE); RBC,URINE 0-2 /HPF (0-3); SQUAMOUS EPITHELIAL CELL,UR RARE /HPF (NEGATIVE)
[2020-01-28] MEDS: PULMICORT NEB TX 0.5 MG NEB SCH (20:46)
[2020-01-28] MEDS: SINEquan PO SCH (21:00)
[2020-01-28] MEDS: LIORESAL PO SCH (21:00)
[2020-01-28] MEDS: AMBIEN PO SCH (21:00)
[2020-01-28] MEDS: NEURONTIN CAP 300 MG PO SCH (22:00)
[2020-01-29 00:19] LABS: CKMB % 1.9 % (<4); TROPONIN I 0.04 ng/mL (0-1.5)
[2020-01-29] MEDS: SNACK - Diabetic Appropriate PO SCH ×2 (00:56→20:45)
[2020-01-29] MEDS: CARAFATE PO SCH ×4 (05:35→20:47)
[2020-01-29] MEDS: NEURONTIN CAP 300 MG PO SCH ×3 (05:35→22:10)
[2020-01-29 06:08] LABS: BASOPHILS % (AUTO) 0.3 % (0.2-1.0); HEMATOCRIT 28.2 % (42.0-54.0); HEMOGLOBIN 9.5 g/dL (13.5-18.0); LYMPHOCYTES # (AUTO) 1.5 X10^3/uL (1.3-2.9); LYMPHOCYTES % (AUTO) 17.8 % (21.0-51.0); MEAN CORPUSCULAR HEMOGLOBIN 27.1 pg (27.0-34.0); MEAN CORPUSCULAR HGB CONC 33.7 g/dL (33.0-35.0); MEAN CORPUSCULAR VOLUME 80.4 fL (80.0-100.0); MEAN PLATELET VOLUME 9.2 fL (7.4-11.0); MONOCYTES # (AUTO) 0.8 x10^3/uL (0.3-0.8); MONOCYTES % (AUTO) 9.6 % (0.0-13.0); NEUTROPHILS # (AUTO) 6.1 x10^3/uL (2.2-4.8); NEUTROPHILS % (AUTO) 72.3 % (42.0-75.0); PLATELET COUNT 183 X10^3/uL (150.0-450.0); RED BLOOD COUNT 3.51 X10^6/uL (4.7-6.0); RED CELL DISTRIBUTION WIDTH 14.7 % (11.6-16.5); WHITE BLOOD COUNT 8.4 X10^3/uL (3.6-10.0)
[2020-01-29] MEDS: DUONEB 0.5 MG/3 MG (3 mL) NEB SCH ×5 (06:12→20:43)
[2020-01-29 07:19] LABS: ALANINE AMINOTRANSFERASE 25 Units/L (12-78); ALBUMIN 3.4 g/dL (3.4-5.0); ALKALINE PHOSPHATASE 114 Units/L (46-116); ASPARTATE AMINO TRANSFERASE 33 Units/L (15-37); BLOOD UREA NITROGEN 11 mg/dL (7-18); CALCIUM 9.1 mg/dL (8.5-10.1); CHLORIDE 100 mmol/L (98-107); CKMB % 1.7 % (<4); COR NA(FOR HYPERGLY) 140 mmol/L (136-145); CREATINE KINASE 251 Units/L (39-308); CREATININE 1.07 mg/dL (0.70-1.30); MAGNESIUM 2.2 mg/dL (1.7-2.9); SODIUM 139 mmol/L (136-145); TOTAL PROTEIN 7.4 g/dL (6.4-8.2); TROPONIN I 0.06 ng/mL (0-1.5); eGFR NON BLACK RACES > 60 (>60)
[2020-01-29 07:24] LABS: CARBON DIOXIDE 27.9 mmol/L (21-32)
[2020-01-29 07:27] LABS: CREATINE KINASE MB 4.2 ng/mL (0-4.0)
[2020-01-29] MEDS ORDERED: LEXAPRO ONE (09:03)
[2020-01-29] MEDS: ASPIRIN EC 81 MG PO SCH (09:16)
[2020-01-29] MEDS: CRESTOR TAB 10 MG PO SCH (09:17)
[2020-01-29] MEDS: CORDARONE TAB 200 MG PO SCH (09:26)
[2020-01-29] MEDS: LIORESAL PO SCH ×2 (09:28→20:48)
[2020-01-29] MEDS: LEXAPRO PO SCH (09:28)
[2020-01-29] MEDS: TOPROL XL PO SCH (09:29)
[2020-01-29] MEDS: SOLU-Medrol 40 MG VIAL IVP SCH ×3 (09:29→22:10)
[2020-01-29] MEDS: PULMICORT NEB TX 0.5 MG NEB SCH ×2 (09:30→20:43)
[2020-01-29] MEDS: ZETIA TAB 10 MG PO SCH (09:30)
[2020-01-29] MEDS: ZAROXOLYN PO SCH (09:30)
[2020-01-29] MEDS: SYNTHROID 25 mcg TAB PO SCH (09:30)
[2020-01-29] MEDS: ZITHROMAX INJ 500 MG VIAL 500 MG in D5W 250 ML IV 250 ML IV SCH (09:32)
[2020-01-29] MEDS: ROCEPHIN VIAL 1 GRAM 1 G in NS 100 ML IV + SPIKE MINIBAG* 100 ML IV SCH (09:32)
[2020-01-29] MEDS: LASIX IVP SCH ×2 (09:51→17:29)
[2020-01-29] MEDS: HumuLIN R SUBCUT PRN ×3 (12:23→21:30)
[2020-01-29] MEDS: LOVENOX INJ 40 MG SYR SC SCH (15:04)
[2020-01-29] MEDS ORDERED: TUSSIONEX PENNKINETIC SUSP PO PRN (15:10)
[2020-01-29] MEDS: [UNRECOGNIZED DRUG - OTHER] SUBCUT SCH (17:11)
[2020-01-29] MEDS: INSULIN DEGLUDEC 200 UNIT/ML SUBCUT SCH (17:11)
--- NOTE | 2020-01-29 18:34 | DR.H&P ---
H&P - History & Physical for Day of: H&P Date: 01/28/20 - Chief Complaint Chief Complaint: SOB - History of Present Illness History of Present Illness: PT IS 54 WM ER ADMISSION WITH CO SOB WITH CCC. PT HAS PMH OF COPD AND CHF. PT DENIES ANY FEVER OR KNOWN COVID EXPOSURE. PT ALSO HAD CAD, AFIB, HTN, DM, OA. PT HAD CHF VS PNEUMONIA ON CHEST XRAY IN ER WITH ELEVATED BNP. PT ADMITTED FOR TREATMENT OF ACUTE ILLNESS. - Past Medical History Past Medical History: [place], Coronary Artery Disease, Hypertension, Dyslipidemia, Diabetes, Depression, GERD, Arthritis - Past Surgical History Surgical History: CABG/Valve Surgery, Ortho Surgery, Tonsillectomy, Other - Family History Family Medical History: Diabetes Mellitus, Cancer, [place], Hypertension - Social History Does patient currently use any type of tobacco product: Yes Have you used tobacco products in the last 12 months: Yes Type of Tobacco Use: Cigarettes How many years tobacco product used: 25 Does any household member use tobacco: Yes Alcohol Use: None Drug Use: None - Medications Home Medications: naproxen Allergy (Verified 05/04/19 10:41) oxycodone [From OxyContin] Allergy (Verified 05/04/19 10:41) CONTINUE taking the following medications amiodarone 200 mg PO DAILY 01/28/20 [History] aspirin 81 mg PO DAILY 01/28/20 [History] doxepin 25 mg PO HS 01/28/20 [History] escitalopram oxalate 20 mg PO DAILY 01/28/20 [History] ezetimibe 10 mg PO DAILY 01/28/20 [History] furosemide 40 mg PO DAILY 01/28/20 [History] insulin degludec [Tresiba FlexTouch U-200] 30 unit SUBCUT DAILY 01/28/20 [History] levothyroxine 25 mcg PO DAILY 01/28/20 [History] metolazone 5 mg PO DAILY 01/28/20 [History] metoprolol succinate 25 mg PO DAILY 01/28/20 [History] rosuvastatin 20 mg PO DAILY 01/28/20 [History] sucralfate 1 g PO QID 01/28/20 [History] tapentadol [Nucynta] 100 mg PO Q8H PRN 01/28/20 [History] zolpidem 5 mg PO HS 01/28/20 [History] sacubitril-valsartan [Entresto] 1 tab BID 01/29/20 [History] - Review of Systems Constitutional: Chills, Malaise Eyes: No Symptoms Reported ENT: No Symptoms Reported Respiratory: Cough, Shortness of Breath, SOB with Excertion, Sputum, Wheezing Cardiovascular: Chest Pain Gastrointestinal: Nausea Genitourinary: No Symptoms Reported Musculoskeletal: Back Pain Skin: No Symptoms Reported Neurological: No Symptoms Reported - Physical Exam Vital Signs: Temperature 97.6 F Pulse Rate [Left Brachial] 72 Pulse Rate [Brachial] 79 Pulse Rate 70 Respiratory Rate 20 Blood Pressure [Left Arm] 121/92 Blood Pressure [Right Arm] 136/83 Blood Pressure 126/63 O2 Sat by Pulse Oximetry 95 Oriented: Normal Eyes: Normal Ear: Normal Nose: Normal Throat: Normal Respiratory: Wheezes Throughout Cardiovascular: Tachycardia : Normal Auscultation: Bowel Sounds: Normal Palpation: Normal Tenderness: Normal Skin: Decreased Turgur Musculoskeletal: Back:Thoracic, Back:Lumbar Psychiatric: Anxiety Affect: Anxious Speech Pattern: Clear, Appropriate - Assessment/Plan (1) SOB (shortness of breath) Status: Acute Plan: ADMIT, SERIAL CE AND EKG. IV ATBX, SOLU MEDROL. STRICT I&OS, RESUME HOME MEDICATION, TELEMETRY. CXR ON ADMISSION AND Q AM. BS AND BP CONTROL, RESP THERAPY, SUPPLEMENTAL O2 (2) COPD (chronic obstructive pulmonary disease) with acute bronchitis Status: Acute (3) CAD (coronary artery disease) Status: Acute (4) Diabetes Status: Acute (5) Congestive heart failure (CHF) Status: Acute - Allergies Allergies/Adverse Reactions: Allergies Allergy/AdvReac Type Severity Reaction Status Date / Time naproxen Allergy Verified 05/04/19 10:41 oxycodone [From OxyContin] Allergy Verified 05/04/19 10:41
[2020-01-29] MEDS: SINEquan PO SCH (20:40)
[2020-01-29] MEDS: AMBIEN PO SCH (20:47)
[2020-01-29 20:54] LABS: TROPONIN I 0.06 ng/mL (0-1.5)
[2020-01-29 21:00] LABS: CKMB % 1.9 % (<4); CREATINE KINASE MB 6.3 ng/mL (0-4.0)
[2020-01-29] MEDS: ENTRESTO 24/26 MG TAB PO SCH (21:00)
[2020-01-30] MEDS: DUONEB 0.5 MG/3 MG (3 mL) NEB SCH ×4 (00:46→12:30)
[2020-01-30 01:32] LABS: TROPONIN I 0.05 ng/mL (0-1.5)
[2020-01-30 01:34] LABS: CREATINE KINASE MB 6.3 ng/mL (0-4.0)
[2020-01-30] MEDS: HumuLIN R SUBCUT PRN ×4 (02:45→12:34)
--- NOTE | 2020-01-30 05:36 | RAD ---
HISTORYPNEUMONIA, CHFSTUDYCHEST, 1 [id number]/15/2020 isFINDINGSThe trachea is midline. The cardiac silhouette is enlarged.. Patchy bilateral airspace opacities unchanged.. The bony thorax is unremarkable. Changes of prior CABG surgery with permanent pacing device.IMPRESSIONCardiomegaly with patchy bilateral airspace opacities; no significant change from 01/28/2020Electronically signed by: Andrés Rojas (Jan 30, 2020 05:33:27)
[2020-01-30] MEDS: CARAFATE PO SCH ×2 (05:50→12:33)
[2020-01-30] MEDS: NEURONTIN CAP 300 MG PO SCH ×2 (05:50→13:42)
[2020-01-30 06:39] LABS: BASOPHILS % (AUTO) 0.3 % (0.2-1.0); HEMATOCRIT 30.6 % (42.0-54.0); HEMOGLOBIN 10.2 g/dL (13.5-18.0); LYMPHOCYTES # (AUTO) 1.1 X10^3/uL (1.3-2.9); LYMPHOCYTES % (AUTO) 12.5 % (21.0-51.0); MEAN CORPUSCULAR HEMOGLOBIN 26.8 pg (27.0-34.0); MEAN CORPUSCULAR HGB CONC 33.3 g/dL (33.0-35.0); MEAN CORPUSCULAR VOLUME 80.5 fL (80.0-100.0); MONOCYTES # (AUTO) 0.4 x10^3/uL (0.3-0.8); MONOCYTES % (AUTO) 4.9 % (0.0-13.0); NEUTROPHILS # (AUTO) 6.9 x10^3/uL (2.2-4.8); NEUTROPHILS % (AUTO) 82.3 % (42.0-75.0); PLATELET COUNT 206 X10^3/uL (150.0-450.0); RED BLOOD COUNT 3.81 X10^6/uL (4.7-6.0); RED CELL DISTRIBUTION WIDTH 15.1 % (11.6-16.5); WHITE BLOOD COUNT 8.4 X10^3/uL (3.6-10.0)
[2020-01-30 06:57] LABS: ALANINE AMINOTRANSFERASE 23 Units/L (12-78); ALBUMIN 3.4 g/dL (3.4-5.0); ALKALINE PHOSPHATASE 107 Units/L (46-116); ASPARTATE AMINO TRANSFERASE 25 Units/L (15-37); BLOOD UREA NITROGEN 14 mg/dL (7-18); CALCIUM 9.2 mg/dL (8.5-10.1); CARBON DIOXIDE 32.3 mmol/L (21-32); CHLORIDE 95 mmol/L (98-107); COR NA(FOR HYPERGLY) 140 mmol/L (136-145); CREATININE 1.13 mg/dL (0.70-1.30); SODIUM 136 mmol/L (136-145); TOTAL PROTEIN 7.3 g/dL (6.4-8.2); eGFR NON BLACK RACES > 60 (>60)
[2020-01-30 07:25] LABS: CKMB % 1.7 % (<4); TROPONIN I 0.05 ng/mL (0-1.5)
[2020-01-30 07:30] LABS: CREATINE KINASE MB 4.1 ng/mL (0-4.0)
[2020-01-30] MEDS ORDERED: POTASSIUM CHLORIDE LIQ 20 MEQ UDC PO PRN (07:33)
[2020-01-30] MEDS ORDERED: MAGNESIUM SULFATE 1 GRAM/100 mL PREMIX 1 GM/100 ML BAG IV PRN (07:33)
[2020-01-30] MEDS ORDERED: MICRO K EXTEN CAP 10 MEQ PO PRN (07:33)
[2020-01-30] MEDS ORDERED: K-DUR TAB 20 MEQ PO PRN (07:33)
[2020-01-30] MEDS ORDERED: KLOR-CON PO PRN (07:33)
[2020-01-30] MEDS ORDERED: LEXAPRO ONE (08:37)
[2020-01-30] MEDS: ASPIRIN EC 81 MG PO SCH (09:06)
[2020-01-30] MEDS: CORDARONE TAB 200 MG PO SCH (09:07)
[2020-01-30] MEDS: ZITHROMAX INJ 500 MG VIAL 500 MG in D5W 250 ML IV 250 ML IV SCH (09:08)
[2020-01-30] MEDS: ZAROXOLYN PO SCH (09:09)
[2020-01-30] MEDS: ZETIA TAB 10 MG PO SCH (09:09)
[2020-01-30] MEDS: CRESTOR TAB 10 MG PO SCH (09:10)
[2020-01-30] MEDS: TOPROL XL PO SCH (09:11)
[2020-01-30] MEDS: ROCEPHIN VIAL 1 GRAM 1 G in NS 100 ML IV + SPIKE MINIBAG* 100 ML IV SCH (09:11)
[2020-01-30] MEDS: SYNTHROID 25 mcg TAB PO SCH (09:11)
[2020-01-30] MEDS: LOVENOX INJ 40 MG SYR SC SCH (09:11)
[2020-01-30] MEDS: LEXAPRO PO SCH (09:13)
[2020-01-30] MEDS: LIORESAL PO SCH (09:13)
[2020-01-30] MEDS: ENTRESTO 24/26 MG TAB PO SCH (09:15)
[2020-01-30] MEDS: PULMICORT NEB TX 0.5 MG NEB SCH (09:30)
[2020-01-30] MEDS ORDERED: NS 500 ML IV 500 ML IV ONE (09:34)
[2020-01-30] MEDS ORDERED: NS 500 ML IV 500 ML IV SCH (12:00)
[2020-01-30] MEDS: INSULIN DEGLUDEC 200 UNIT/ML SUBCUT SCH (13:41)
[2020-01-30] MEDS: [UNRECOGNIZED DRUG - OTHER] SUBCUT SCH (13:41)
[2020-01-30] MEDS ORDERED: LASIX IVP SCH (14:00)
[2020-01-30] MEDS ORDERED: K-DUR TAB 20 MEQ PO SCH (14:00)
[2020-01-30] MEDS ORDERED: DIFLUCAN 100 MG IV (MIX by PHARMACY)* 100 MG/50 ML BAG IV SCH (14:00)
[2020-01-30 16:29] VITALS: BP 121/66
== END 2020-01-30 16:30 | disposition home health service (06) | DRG 195 ==
LOC: ER 10:00 → MED/SURG 16:17
PROVIDERS: ADMIT Internal Medicine; ATTEND Internal Medicine
DX: J18.8 Other pneumonia, unspecified organism; Z20.828 Contact with and (suspected) exposure to other viral communicable diseases; J20.8 Acute bronchitis due to other specified organisms; E11.65 Type 2 diabetes mellitus with hyperglycemia; J44.9 Chronic obstructive pulmonary disease, unspecified; I50.9 Heart failure, unspecified; I25.10 Atherosclerotic heart disease of native coronary artery without angina pectoris; R06.03 Acute respiratory distress

== ENCOUNTER 2023-02-02 16:27 | Inpatient (IN) ==
--- NOTE | 2023-02-02 17:48 | DR.H&P ---
H&P History & Physical for Day of: H&P Date: 02/02/23 Chief Complaint Chief Complaint: decrease urine output, tremors, sob Allergies Allergies Allergy/AdvReac Type Severity Reaction Status Date / Time naproxen Allergy Verified 02/27/21 09:28 oxycodone [From OxyContin] Allergy Verified 02/27/21 09:28 History of Present Illness History of Present Illness: PT IS 57 WM, DIRECT ADMIT FROM DR BRYAN OFFICE WITH NEW ONSET URINARY RETENTION AND "MUSCLE JERKING" PT HAS PMH OF CHF, COPD, GERD AND OA. PT HAD OUTPT LABS REVEALING ACUTE RENAL INJURY, HYPONAREMIA AND HYPERKALEMIA. PT ADMITTED FOR TREATMENT OF ACUTE ILLNESS. Past Medical History Past Medical History: CHF, Coronary Artery Disease, Hypertension and [place] Past Surgical History Surgical History: Angioplasty/Stents, CABG/Valve Surgery and Ortho Surgery Family History Family Medical History: Cancer Medications Home Medications: Home Medications Medication Instructions Recorded Confirmed Type baclofen 10 mg tablet 10 - 20 mg PO BID 06/25/17 01/28/20 History gabapentin 300 mg capsule 300 mg PO TID 06/25/17 01/28/20 History ticagrelor 90 mg tablet (Brilinta) 90 mg PO BID 06/25/17 01/28/20 History amiodarone 200 mg tablet 200 mg PO DAILY 01/28/20 01/28/20 History aspirin 81 mg tablet 81 mg PO DAILY 01/28/20 01/28/20 History doxepin 25 mg capsule 25 mg PO HS 01/28/20 01/28/20 History escitalopram oxalate 20 mg tablet 20 mg PO DAILY 01/28/20 01/28/20 History ezetimibe 10 mg tablet 10 mg PO DAILY 01/28/20 01/28/20 History furosemide 40 mg tablet 40 mg PO DAILY 01/28/20 01/28/20 History insulin degludec 200 unit/mL (3 30 unit subcut DAILY 01/28/20 01/28/20 History mL) subcutaneous pen (Tresiba FlexTouch U-200 insulin) levothyroxine 25 mcg tablet 25 mcg PO DAILY 01/28/20 01/28/20 History metolazone 5 mg tablet 5 mg PO DAILY 01/28/20 01/28/20 History metoprolol succinate 25 mg 25 mg PO DAILY 01/28/20 01/28/20 History tablet,extended release 24 hr rosuvastatin 20 mg tablet 20 mg PO DAILY 01/28/20 01/28/20 History sucralfate 1 gram tablet 1 g PO QID 01/28/20 01/28/20 History tapentadol 100 mg tablet (Nucynta) 100 mg PO Q8H PRN Pain 01/28/20 01/29/20 History zolpidem 5 mg tablet 5 mg PO HS 01/28/20 01/28/20 History sacubitril 49 mg-valsartan 51 mg 1 tab BID 01/29/20 01/29/20 History tablet (Entresto) Review of Systems Constitutional: Weakness Eyes: No Symptoms Reported ENT: No Symptoms Reported Respiratory: Shortness of Breath, SOB with Excertion, Sputum and Wheezing Cardiovascular: Edema and Other; denies Chest Pain Gastrointestinal: No Symptoms Reported Genitourinary: Retention Musculoskeletal: Back Pain and Leg Pain Skin: No Symptoms Reported Neurological: Other (INVOLUNTARY MUSLCE MOVEMENTS) Oriented: Normal Eyes: Normal Ear: Normal Nose: Normal Throat: Dry Respiratory: Diminished Throughout, RLL Rales and LLL Rales Palpation: Normal Tenderness: Normal Skin: Decreased Turgur Psychiatric: Anxiety Mood Description: Anxious Affect: Anxious Speech Pattern: Clear Assessment/Plan (1) Acute hyperkalemia: Narrative Support Text: ADMIT, IV HYDRATION WITH STRICT I&OS SERIAL CE AND EKG KAYEXALATE X1 DOSE REPEAT AM LABS BNP AND EKG ON ADMISSION RESP CONSULT BS CONTROL PLACEMENT OF RAMOS CATH NEEDED FOR URINARY RETENTION Status: Acute (2) Diabetes: Status: Acute (3) CAD (coronary artery disease): Status: Acute (4) COPD (chronic obstructive pulmonary disease) with acute bronchitis: Status: Acute (5) Congestive heart failure (CHF): Status: Acute (6) Acute renal insufficiency: Status: Acute
[2023-02-02] MEDS ORDERED: NovoLIN R (or HumuLIN R) SC PRN (17:49)
[2023-02-02] MEDS ORDERED: PERCOCET TAB 5/325 MG PO PRN (17:49)
[2023-02-02 17:54] LABS: BASOPHILS % (AUTO) 0.5 % (0.2-1.0); EOSINOPHILS # (AUTO) 0.1 x10^3/uL (0.0-0.2); HEMATOCRIT 37.8 % (42.0-54.0); HEMOGLOBIN 12.3 g/dL (13.5-18.0); LYMPHOCYTES # (AUTO) 1.7 X10^3/uL (1.3-2.9); LYMPHOCYTES % (AUTO) 24.2 % (21.0-51.0); MEAN CORPUSCULAR HEMOGLOBIN 28.1 pg (27.0-34.0); MEAN CORPUSCULAR HGB CONC 32.4 g/dL (33.0-35.0); MEAN CORPUSCULAR VOLUME 86.5 fL (80.0-100.0); MEAN PLATELET VOLUME 9.2 fL (7.4-11.0); MONOCYTES # (AUTO) 0.7 x10^3/uL (0.3-0.8); MONOCYTES % (AUTO) 10.5 % (0.0-13.0); NEUTROPHILS # (AUTO) 4.5 x10^3/uL (2.2-4.8); NEUTROPHILS % (AUTO) 63.8 % (42.0-75.0); PLATELET COUNT 318 X10^3/uL (150.0-450.0); RED BLOOD COUNT 4.37 X10^6/uL (4.7-6.0)
--- NOTE | 2023-02-02 17:56 | EKG ---
Test Reason : sob, chf Blood Pressure : */* mmHG Vent. Rate : 76 BPM Atrial Rate : 76 BPM P-R Int : 156 ms QRS Dur : 162 ms QT Int : 490 ms P-R-T Axes : 66 143 91 degrees QTc Int : 551 ms Atrial-sensed ventricular-paced rhythm Biventricular pacemaker detected Abnormal ECG No previous ECGs available Confirmed by Gabe Bello MD ([id number]) on 02/03/2023 12:59:19 PM Referred By: Confirmed By: Gabe Bello MD
[2023-02-02] MEDS ORDERED: NS 1,000 ML IV 1,000 ML IV SCH ×2 (18:00→23:45)
[2023-02-02 18:09] LABS: ABG BASE EXCESS 2.2 mmol/L (-2.0-2.0); ABG HCO3 26.5 mmol/L (22-26)
[2023-02-02 18:10] LABS: ABG ALLEN TEST POS
[2023-02-02 18:24] LABS: CALCIUM 8.3 mg/dL (8.5-10.1); CARBON DIOXIDE 28.7 mmol/L (21-32); COR CA(FOR HYPOALB) 9.1 mg/dL (8.5-10.1); CREATININE 2.37 mg/dL (0.70-1.30); TOTAL PROTEIN 7.3 g/dL (6.4-8.2)
[2023-02-02] MEDS ORDERED: KAYEXALATE SUSP PO ONE (18:30)
[2023-02-02 18:41] LABS: POTASSIUM 5.9 mmol/L (3.5-5.1)
[2023-02-02] MEDS ORDERED: PROVENTIL NEB TX 0.083% 2.5MG/ 3ML ONE (19:55)
[2023-02-02] MEDS ORDERED: PULMICORT NEB TX 0.5 MG NEB ONE (19:55)
[2023-02-02] MEDS: BRILINTA PO SCH (20:56)
[2023-02-02] MEDS: PULMICORT NEB TX 0.5 MG NEB SCH (20:58)
[2023-02-02] MEDS: PROVENTIL NEB TX 0.083% 2.5MG/ 3ML NEB SCH (20:58)
[2023-02-02] MEDS ORDERED: AMBIEN PO SCH (21:00)
[2023-02-02] MEDS ORDERED: FLOMAX PO SCH (21:00)
[2023-02-02] MEDS ORDERED: SINEquan PO SCH (21:00)
--- NOTE | 2023-02-02 22:17 | RAD ---
EXAM:FRONTAL AND LATERAL VIEW CHEST X-RAYHISTORY:History of congestive heart failure and shortness of breathCOMPARISON:01/28/2023FINDINGS:A implantable cardiac device is again seen and not significantly changed from prior study. No evidence of lead wire fractures.Again seen are postoperative changes from midline sternotomy most likely for coronary artery bypass graft.Persistent multifocal alveolar airspace disease is seen in the bilateral mid and lower lung zones which is not significantly changed from the prior study.The heart size is persistently enlarged but stable from prior examination.The mediastinum is unremarkable.There is no evidence of pleural effusion or gross pneumothorax.The trachea is midline.The degree of opacification of the retrocardiac space overlying the lower thoracic spine on the lateral view is not significant changed from the prior exam.IMPRESSION:1. Persistent multifocal alveolar airspace disease is seen in the bilateral lower lung zones with persistent cardiomegaly. Underlying infectious process should be considered in the differential diagnosis. These findings may represent persistent pulmonary edema. Correlation with patient BNP levels may be helpful.THIS IS AN ELECTRONICALLY VERIFIED FINAL [id number]/02/2023 10:14 PM - Electronically signed by Mckay Aguirre MD
[2023-02-02 23:24] LABS: BILIRUBIN,URINE NEGATIVE (NEGATIVE); BLOOD/HEMOGLOBIN,URINE NEGATIVE (NEGATIVE); GLUCOSE, URINE 4+ (NEGATIVE); KETONES,URINE NEGATIVE (NEGATIVE); LEUKOCYTE ESTERASE ,URINE NEGATIVE (NEGATIVE); NITRITES,URINE NEGATIVE (NEGATIVE); PROTEIN,URINE 2+ (NEGATIVE); UROBILINOGEN,URINE NORMAL (NORMAL)
[2023-02-02 23:36] LABS: APPEARANCE,URINE CLEAR (CLEAR); BACTERIA,URINE NEGATIVE /HPF (NEGATIVE); COLOR,URINE YELLOW (YELLOW); RBC,URINE NONE SEEN /HPF (0-3); SQUAMOUS EPITHELIAL CELL,UR RARE /HPF (NEGATIVE)
[2023-02-02 23:37] LABS: HYALINE CASTS, URINE RARE /LPF (NEGATIVE); RENAL EPITHELIAL CELLS,URINE RARE /HPF (NEGATIVE)
[2023-02-02] MEDS ORDERED: LASIX IVP ONE (23:39)
[2023-02-02] MEDS: PROSCAR PO SCH (23:49)
[2023-02-03 00:54] VITALS: BMI 34.7
[2023-02-03] MEDS ORDERED: PROVENTIL NEB TX 0.083% 2.5MG/ 3ML ONE (03:52)
[2023-02-03] MEDS ORDERED: SALINE 0.9% 3 ML NEB TX ONE (03:52)
[2023-02-03] MEDS: PROVENTIL NEB TX 0.083% 2.5MG/ 3ML NEB SCH ×2 (04:19→09:09)
[2023-02-03 06:22] LABS: BASOPHILS % (AUTO) 0.6 % (0.2-1.0); EOSINOPHILS # (AUTO) 0.1 x10^3/uL (0.0-0.2); EOSINOPHILS % (AUTO) 1.5 % (0.9-2.9); HEMATOCRIT 37.1 % (42.0-54.0); HEMOGLOBIN 12.3 g/dL (13.5-18.0); LYMPHOCYTES # (AUTO) 1.8 X10^3/uL (1.3-2.9); LYMPHOCYTES % (AUTO) 25.3 % (21.0-51.0); MEAN CORPUSCULAR HEMOGLOBIN 27.9 pg (27.0-34.0); MEAN CORPUSCULAR VOLUME 84.6 fL (80.0-100.0); MEAN PLATELET VOLUME 9.5 fL (7.4-11.0); MONOCYTES # (AUTO) 0.8 x10^3/uL (0.3-0.8); MONOCYTES % (AUTO) 11.4 % (0.0-13.0); NEUTROPHILS # (AUTO) 4.3 x10^3/uL (2.2-4.8); NEUTROPHILS % (AUTO) 61.2 % (42.0-75.0); PLATELET COUNT 272 X10^3/uL (150.0-450.0); RED BLOOD COUNT 4.39 X10^6/uL (4.7-6.0); RED CELL DISTRIBUTION WIDTH 15.3 % (11.6-16.5)
[2023-02-03 06:30] LABS: ALBUMIN 3.2 g/dL (3.4-5.0); CALCIUM 8.4 mg/dL (8.5-10.1); CREATININE 2.21 mg/dL (0.70-1.30); POTASSIUM 5.6 mmol/L (3.5-5.1); TOTAL PROTEIN 7.6 g/dL (6.4-8.2)
[2023-02-03] MEDS ORDERED: LASIX IVP ONE (08:37)
[2023-02-03] MEDS ORDERED: LOVENOX INJ 40 MG SYR SC SCH (09:00)
[2023-02-03] MEDS ORDERED: SYNTHROID 25 mcg TAB PO SCH (09:00)
[2023-02-03] MEDS ORDERED: LANTUS SC SCH (09:00)
[2023-02-03] MEDS ORDERED: TOPROL XL PO SCH (09:00)
[2023-02-03] MEDS: PULMICORT NEB TX 0.5 MG NEB SCH (09:09)
--- NOTE | 2023-02-03 09:18 | RAD ---
EXAM:CHEST, 1 VIEWHISTORY:History of congestive heart failureCOMPARISON:02/02/2023FINDINGS:The lungs are clear. No pneumothorax or right effusion. There may be a small left pleural effusion.Cardiomegaly is present.The bones are unremarkable.A left subclavian ICD is present with the leads in expected location. Median sternotomy fixation hardware is present. EKG leads are noted.IMPRESSION:1. Cardiomegaly2. Small left effusionTHIS IS AN ELECTRONICALLY VERIFIED FINAL [id number]/03/2023 9:15 AM - Electronically signed by Keo Doyle MD
[2023-02-03] MEDS: PROSCAR PO SCH (10:04)
[2023-02-03] MEDS: BRILINTA PO SCH (10:04)
[2023-02-03 16:56] VITALS: BP 99/64; PULSE 84; RESP 20; TEMP 97.7; O2SAT 99
== END 2023-02-03 17:25 | disposition short-term general hospital (02) | DRG 641 ==
LOC: MED/SURG → OBSVTOIN 17:16
PROVIDERS: ADMIT Internal Medicine; ATTEND Internal Medicine
DX: K21.9 Gastro-esophageal reflux disease without esophagitis; N40.1 Benign prostatic hyperplasia with lower urinary tract symptoms; Z95.0 Presence of cardiac pacemaker; R77.8 Other specified abnormalities of plasma proteins; I50.9 Heart failure, unspecified; J44.9 Chronic obstructive pulmonary disease, unspecified; E87.5 Hyperkalemia; E11.65 Type 2 diabetes mellitus with hyperglycemia; R06.02 Shortness of breath; I25.10 Atherosclerotic heart disease of native coronary artery without angina pectoris; N17.8 Other acute kidney failure; E87.1 Hypo-osmolality and hyponatremia; E86.0 Dehydration